=== PATIENT | female | born 1970 | race Caucasian/White ===

== ENCOUNTER 2016-08-26 06:11 | Observation (INO) | payer OTHER ==
[~2016-08-26] VITALS: Ht 170.2 cm; Wt 85.0 kg
[~2016-08-26 06:11] MED LIST: AMBI10TA PO; PROT40TA PO; PROZ40CA PO
[2016-08-26 12:00] VITALS: BP 121/59; PULSE 56; RESP 17; TEMP 97.5; O2SAT 93
[2016-08-26] MEDS ORDERED: methylPREDNISolone SOD SUCC 125 MG/2 ML VIAL IV PUSH ONE (14:00)
[2016-08-26] MEDS ORDERED: ALBUTEROL SULFATE 90 MCG/ACT HFA 18 GM INHALER INH PRN (14:00)
[2016-08-26] MEDS ORDERED: ONDANSETRON HCL 4 MG/2 ML VIAL IV PRN (14:30)
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
[2016-08-26] MEDS: PANTOPRAZOLE SOD 40 MG DELAYED RELEASE TAB PO SCH (15:27)
[2016-08-26] MEDS: ACETAMINOPHEN 325 MG TAB PO PRN ×2 (15:28→20:11)
[2016-08-26 16:00] VITALS: BP 120/63; PULSE 62; RESP 17; TEMP 97.9; O2SAT 96
[2016-08-26] MEDS: RESP: ALBUTEROL 2.5 MG/IPRATROPIUM 0.5 MG NEB (SCH) NEB ×2 (18:13→20:32)
[2016-08-26 20:00] VITALS: BP 116/64; PULSE 80; RESP 18; TEMP 96; O2SAT 96
[2016-08-26] MEDS: methylPREDNISolone SOD SUCC 125 MG/2 ML VIAL IV PUSH SCH (20:10)
[2016-08-26 20:34] VITALS: O2SAT 97
[2016-08-27] MEDS: methylPREDNISolone SOD SUCC 125 MG/2 ML VIAL IV PUSH SCH ×2 (00:09→05:09)
[2016-08-27 00:10] VITALS: BP 111/52; PULSE 82; RESP 18; TEMP 97; O2SAT 92
[2016-08-27 04:04] VITALS: BP 116/59; PULSE 80; RESP 17; TEMP 96.2; O2SAT 95
[2016-08-27 06:03] LABS: AUTOMATED NEUTROPHIL # 8.5 TH/MM3 (1.8-7.7); HEMATOCRIT 35.2 % (35.0-46.0); HEMO FLAGS DIFF FINAL; LYMPH % 6.7 % (9.0-44.0); LYMPHOCYTE # 0.6 TH/MM3 (1.0-4.8); MEAN CELL VOLUME 83.1 FL (80.0-100.0); MEAN CORPUSCULAR HEMOGLOBIN 27.5 PG (27.0-34.0); MONO % 0.5 % (0.0-8.0); NEUT % 92.8 % (16.0-70.0); PLATELET COUNT 397 TH/MM3 (150-450); RED BLOOD COUNT 4.24 MIL/MM3 (4.00-5.30); RED CELL DISTRIBUTION WIDTH 17.1 % (11.6-17.2); WHITE BLOOD COUNT 9.2 TH/MM3 (4.0-11.0)
[2016-08-27 06:19] LABS: BICARBONATE 24.2 MEQ/L (21.0-32.0); MAGNESIUM 1.9 MG/DL (1.5-2.5); POTASSIUM 4.1 MEQ/L (3.5-5.1)
[2016-08-27 07:45] VITALS: O2SAT 93
[2016-08-27] MEDS: RESP: ALBUTEROL 2.5 MG/IPRATROPIUM 0.5 MG NEB (SCH) NEB ×2 (07:45→12:09)
[2016-08-27 08:00] VITALS: BP 118/78; PULSE 68; PULSE 75; RESP 19; TEMP 96.7; O2SAT 92
--- NOTE | 2016-08-27 08:31 | HHI.PR ---
Subjective Remarks Pt feeling well this morning. She has been ambulating in her room without difficulty HR has been stable on telemetry Objective Vitals Vital Signs Date Time Temp Pulse Resp B/P Pulse Ox O2 Delivery O2 Flow Rate FiO2 08/27/16 08:00 96.7 68 19 118/78 92 08/27/16 07:45 93 21 08/27/16 04:04 96.2 80 17 116/59 95 08/27/16 00:10 97.0 82 18 111/52 92 08/26/16 20:34 97 08/26/16 20:00 96.0 80 18 116/64 96 08/26/16 16:00 97.9 62 17 120/63 96 08/26/16 12:00 97.5 56 17 121/59 93 08/26/16 08/26/16 08/27/16 15:00 23:00 07:00 Intake Total 240 ml 480 ml 380 ml Balance 240 ml 480 ml 380 ml Intake Oral 240 ml 480 ml 380 ml # Voids 1 2 2 # Bowel Movements 0 Result Diagram: 08/27/16 0502 08/27/16 0502 Other Results Laboratory Tests Test 08/27/16 05:02 White Blood Count 9.2 TH/MM3 Red Blood Count 4.24 MIL/MM3 Hemoglobin 11.6 GM/DL Hematocrit 35.2 % Mean Corpuscular Volume 83.1 FL Mean Corpuscular Hemoglobin 27.5 PG Mean Corpuscular Hemoglobin 33.0 % Concent Red Cell Distribution Width 17.1 % Platelet Count 397 TH/MM3 Mean Platelet Volume 7.8 FL Neutrophils (%) (Auto) 92.8 % Lymphocytes (%) (Auto) 6.7 % Monocytes (%) (Auto) 0.5 % Eosinophils (%) (Auto) 0.0 % Basophils (%) (Auto) 0.0 % Neutrophils # (Auto) 8.5 TH/MM3 Lymphocytes # (Auto) 0.6 TH/MM3 Monocytes # (Auto) 0.0 TH/MM3 Eosinophils # (Auto) 0.0 TH/MM3 Basophils # (Auto) 0.0 TH/MM3 CBC Comment DIFF FINAL Differential Comment Sodium Level 142 MEQ/L Potassium Level 4.1 MEQ/L Chloride Level 108 MEQ/L Carbon Dioxide Level 24.2 MEQ/L Anion Gap 10 MEQ/L Blood Urea Nitrogen 7 MG/DL Creatinine 0.68 MG/DL Estimat Glomerular Filtration 93 ML/MIN Rate Random Glucose 175 MG/DL Calcium Level 8.7 MG/DL Magnesium Level 1.9 MG/DL Objective Remarks General: NAD, AAOx3 Chest: CTA bilaterally Cardiac: Regular Abd: +BS, soft ND/NT Ext: No edema A/P Problem List: (1) Accidental overdose Status: Acute Plan: - Pt is a 46 y/o WF with GERD and COPD who was brought to the ED at [facility] on 08/25/16 after she accidentally took her husbands medications, which consisted of Clonidine, Lisinopril,. Amlodipine, Prozac and Valium. - Patient became very somnolent and had slurred speech with an ataxic gait and this prompted her evaluation in the ED yesterday evening. - Pt was observed in ED overnight at [facility] and did have improvement in her symptoms, however her gait remained ataxic and HR continued in the 50s, sinus bradycardia so she was transferred to [facility] on 08/26/16 for continued observation. - Pts HR has been stable on telemetry overnight. - Pt has been ambulating without difficulty - Anticipate d/c home today (2) Bradycardia Status: Acute Plan: - See above. - Telemetry (3) COPD (chronic obstructive pulmonary disease) Status: Chronic Plan: - Pt with significant wheezing on examination at admission. - She reports that she had recently been treated for an URI infection with Steroids and antibiotics. - Pt was given IV Solumedrol 125mg po x one dose now and continue 60mg every 6 hours and scheduled Duoneb treatments Q4H WA - She has had significant improvement today, no further wheezing. - We will discharge home with a nebulizer machine and Duonebs QID for the next 3 days and then can be used as needed. - We will also discharge with a quick taper of steroids. - Pt will need to followup with her PCP in 1 week. (4) GERD (gastroesophageal reflux disease) Status: Chronic Plan: - Cont. PPI Assessment and Plan Patient examined. Assessment and plan formulated with Meli Brown PA-C. I agree with the above. copd flare improved. accidental drug od. sx's resolved. d/c home on duonebs and steroid taper. f/u pcp. Problem Qualifiers (1) Accidental overdose: Qualified Code: T50.901A - Accidental overdose, initial encounter Meli Brown Aug 27, 2016 08:31 Eliel Riley MD Aug 27, 2016 20:53
[2016-08-27] MEDS ORDERED: PRED20 PO (08:34)
[2016-08-27] MEDS ORDERED: IPRA0.02 NEB (08:34)
[2016-08-27] MEDS ORDERED: ALBU0.08 NEB (08:34)
[2016-08-27] MEDS ORDERED: NEBULIZER/ADULT1 KIT (08:34)
--- NOTE | 2016-08-27 08:36 | HHI.DCPOC ---
Discharge Care Plan Diagnosis: (1) GERD (gastroesophageal reflux disease) (2) COPD (chronic obstructive pulmonary disease) (3) Bradycardia (4) Accidental overdose Goals to Promote Your Health * To prevent worsening of your condition and complications * To maintain your health at the optimal level Directions to Meet Your Goals Take your medications as prescribed Follow your dietary instruction Follow activity as directed Keep your appointments as scheduled Take your immunizations and boosters as scheduled If your symptoms worsen call your PCP, if no PCP go to Urgent Care Center or Emergency Room Smoking is Dangerous to Your Health. Avoid second hand smoke Call the 24-hour hour crisis hotline for domestic abuse at Meli Brown Aug 27, 2016 08:36
[2016-08-27] MEDS: PANTOPRAZOLE SOD 40 MG DELAYED RELEASE TAB PO SCH (09:18)
[2016-08-27 12:00] VITALS: BP 122/80; PULSE 78; RESP 18; TEMP 97.8; O2SAT 92
== END 2016-08-27 12:15 | disposition home or self-care (01) ==
LOC: NEDDLT 09:32 → N07A 09:42
PROVIDERS: ADMIT Hospitalist; ATTEND Hospitalist
DX: T50.901A Poisoning by unspecified drugs, medicaments and biological substances, accidental (unintentional), initial encounter (principal); R40.0 Somnolence; R47.81 Slurred speech; R26.0 Ataxic gait; R00.1 Bradycardia, unspecified; K21.9 Gastro-esophageal reflux disease without esophagitis; F32.9 Major depressive disorder, single episode, unspecified; J44.9 Chronic obstructive pulmonary disease, unspecified; Z85.828 Personal history of other malignant neoplasm of skin; Z88.1 Allergy status to other antibiotic agents; Z88.2 Allergy status to sulfonamides; Z88.5 Allergy status to narcotic agent; Z87.891 Personal history of nicotine dependence
CPT/HCPCS: 80048; 80053; 80307; 81001; 83735; 85025; 87086; 93005; 94640; 94664; 97161; G8987; G8988; J2930; J7030; 96360; 96361; 96374; 96376; 99281; G0378

== ENCOUNTER 2016-10-01 05:58 | Emergency (ER) | payer SELFPAY ==
[~2016-10-01] VITALS: Ht 170.2 cm; Wt 78.0 kg
[~2016-10-01 05:58] MED LIST changes: +ALBU0.08 NEB; +IPRA0.02 NEB; +NEBULIZER/ADULT1 KIT; +PRED20 PO
[2016-10-01 05:59] VITALS: BP 138/67; PULSE 88; RESP 18; TEMP 97.8; O2SAT 97
[2016-10-01] MEDS ORDERED: HYDROmorphone HCL PF 1 MG/ML VIAL IVS ONE (07:30)
[2016-10-01] MEDS ORDERED: ONDANSETRON HCL 4 MG/2 ML VIAL IVP ONE (07:30)
[2016-10-01] MEDS ORDERED: SODIUM CHLORIDE 0.9% FLUSH 10 ML FLUSH IV FLUSH PRN (07:30)
[2016-10-01 07:44] VITALS: O2SAT 99
[2016-10-01 08:04] LABS: AUTOMATED NEUTROPHIL # 4.3 TH/MM3 (1.8-7.7); BASOPHIL # 0.1 TH/MM3 (0-0.2); BASOPHIL % 0.7 % (0.0-2.0); EOSINOPHIL # 0.2 TH/MM3 (0-0.4); HEMATOCRIT 37.8 % (35.0-46.0); HEMO FLAGS DIFF FINAL; LYMPH % 31.7 % (9.0-44.0); LYMPHOCYTE # 2.5 TH/MM3 (1.0-4.8); MEAN CORPUSCULAR HEMOGLOBIN 26.4 PG (27.0-34.0); MEAN CORPUSCULAR HGB CONC 31.8 % (32.0-36.0); MONO % 9.9 % (0.0-8.0); NEUT % 55.7 % (16.0-70.0); PLATELET COUNT 354 TH/MM3 (150-450); RED BLOOD COUNT 4.56 MIL/MM3 (4.00-5.30); RED CELL DISTRIBUTION WIDTH 16.8 % (11.6-17.2); WHITE BLOOD COUNT 7.7 TH/MM3 (4.0-11.0)
--- NOTE | 2016-10-01 08:06 | PD ---
HPI Chief Complaint: Abdominal Pain Time Seen by Provider: 07:14 Travel History International Travel<30 days: No Contact w/Intl Traveler<30days: No Traveled to known affect area: No History of Present Illness HPI 46-year-old female arrives complaining of constant right-sided abdominal pain in the region of the right upper quadrant and the right flank which radiates to the right groin. She offers several additional complaints including bloody stool since Wednesday, 2 days prior. She reports losing weight, insomnia and significant personal stress lately. She notes blood work for from [place] showed an elevated white blood cell count which had her concern in addition to other laboratory abnormalities evidently obtained by her and reviewed by primary physician, Dr. Ham. She describes an inability to work and function. She describes occasional left-sided flank pain. She reports taking 1500 mg of Tylenol on four different occasions yesterday which did not help. She is experiencing personal stress due to her 's illness. She is also upset because of Obamacare, having lost her insurance about 1 month prior. PFSH Past Medical History Arthritis: Yes Asthma: Yes Anxiety: Yes Depression: Yes Cancer: Yes Cardiovascular Problems: No COPD: Yes Diabetes: No Diminished Hearing: No GERD: Yes Hiatal Hernia: Yes Integumentary: Yes (skin cancer) Migraines: Yes Sleep Apnea: Yes Thyroid Disease: No ?: Not LMP: 09/15/16 Tubal Ligation: Yes (1995) Past Surgical History Abdominal Surgery: Yes Body Medical Devices: plaastic clips in tubes Gynecologic Surgery: Yes Other Surgery: Yes Social History Alcohol Use: No Tobacco Use: No Substance Use: Yes (MARIJUANA) Allergies-Medications (Allergen,Severity, Reaction): Coded Allergies: Morphine (Verified Allergy, Severe, 10/01/16) Toradol (Verified Allergy, Severe, 10/01/16) Tramadol (Verified Allergy, Severe, 10/01/16) Uncoded Allergies: codeine, biaxin, sulfa, keflex, cipro (Allergy, Severe, 08/25/16) Reported Meds & Prescriptions Reported Meds & Active Scripts Active Nebulizer/Adult Mask (N/A) 1 Kit Kit 1 Kit .ROUTE DIRECTED Ipratropium Neb (Ipratropium [place]) 0.5 Mg/2.5 Ml Amp 0.5 Mg NEB QID Albuterol Neb (Albuterol Sulfate) 2.5 Mg/3 Ml Neb 2.5 Mg NEB QID NEB Reported Protonix (Pantoprazole Sodium) 40 Mg Tab 40 Mg PO DAILY Ambien (Zolpidem Tartrate) 10 Mg Tab 10 Mg PO HS PRN Prozac (Fluoxetine HCl) 40 Mg Cap 40 Mg PO DAILY Review of Systems Except as stated in HPI: all other systems reviewed are Neg General / Constitutional: No: Fever Physical Exam Narrative GENERAL: 46 yo F, WNWD, minimal distress 2/2 pain and or anxiety SKIN: Warm and dry. HEAD: Atraumatic. Normocephalic. EYES: Pupils equal and round. No scleral icterus. No injection or drainage. ENT: No nasal bleeding or discharge. Mucous membranes pink and moist. NECK: Trachea midline. No JVD. CARDIOVASCULAR: Regular rate and rhythm. RESPIRATORY: No accessory muscle use. Clear to auscultation. Breath sounds equal bilaterally. GASTROINTESTINAL: Soft. TTP RLQ. MUSCULOSKELETAL: Extremities without clubbing, cyanosis, or edema. No obvious deformities. NEUROLOGICAL: Awake and alert. No obvious cranial nerve deficits. Motor grossly within normal limits. Five out of 5 muscle strength in the arms and legs. Normal speech. PSYCHIATRIC: Appropriate mood and affect; insight and judgment normal. Data Data Last Documented VS Vital Signs Date Time Temp Pulse Resp B/P Pulse Ox O2 Delivery O2 Flow Rate FiO2 10/01/16 10:31 78 20 132/72 10/01/16 07:44 99 10/01/16 05:59 97.8 Room Air VS reviewed Orders Complete Blood Count With Diff (10/01/16 07:26) Comprehensive Metabolic Panel (10/01/16 07:26) Lipase (10/01/16 07:26) Urinalysis - C+S If Indicated (10/01/16 07:26) Ct Abd/Pel W Iv Contrast(Rout) (10/01/16 07:26) Iv Access Insert/Monitor (10/01/16 07:26) Ecg Monitoring (10/01/16 07:26) Oximetry (10/01/16 07:26) Ondansetron Inj (Zofran Inj) (10/01/16 07:30) Sodium Chloride 0.9% Flush (Ns Flush) (10/01/16 07:30) Hydromorphone Pf Inj (Dilaudid Pf Inj) (10/01/16 07:30) Ed Urine Pregnancytest Poc (10/01/16 07:26) Tylenol (Acetaminophen) (10/01/16 08:06) Urine Culture (10/01/16 07:30) Al-Mag Hy-Si 40-40-4 Mg/Ml Liq (Mag-Al P (10/01/16 09:15) Iohexol 350 Inj (Omnipaque 350 Inj) (10/01/16 09:43) Labs Laboratory Tests Test 10/01/16 10/01/16 07:30 07:35 Urine Color LIGHT-YELLOW Urine Turbidity HAZY Urine pH 6.0 Urine Specific [place] 1.005 Urine Protein NEG mg/dL Urine Glucose (UA) NEG mg/dL Urine Ketones NEG mg/dL Urine Occult Blood NEG Urine Nitrite NEG Urine Bilirubin NEG Urine Urobilinogen LESS THAN 2.0 MG/DL Urine Leukocyte Esterase TRACE Urine RBC 2 /hpf Urine WBC 2 /hpf Urine Squamous Epithelial 7 /hpf Cells Urine Amorphous Sediment OCC Urine Bacteria MOD /hpf Urine Mucus FEW /lpf Microscopic Urinalysis Comment CULTURE INDICATED White Blood Count 7.7 TH/MM3 Red Blood Count 4.56 MIL/MM3 Hemoglobin 12.0 GM/DL Hematocrit 37.8 % Mean Corpuscular Volume 83.0 FL Mean Corpuscular Hemoglobin 26.4 PG Mean Corpuscular Hemoglobin 31.8 % Concent Red Cell Distribution Width 16.8 % Platelet Count 354 TH/MM3 Mean Platelet Volume 7.3 FL Neutrophils (%) (Auto) 55.7 % Lymphocytes (%) (Auto) 31.7 % Monocytes (%) (Auto) 9.9 % Eosinophils (%) (Auto) 2.0 % Basophils (%) (Auto) 0.7 % Neutrophils # (Auto) 4.3 TH/MM3 Lymphocytes # (Auto) 2.5 TH/MM3 Monocytes # (Auto) 0.8 TH/MM3 Eosinophils # (Auto) 0.2 TH/MM3 Basophils # (Auto) 0.1 TH/MM3 CBC Comment DIFF FINAL Differential Comment Sodium Level 139 MEQ/L Potassium Level 4.0 MEQ/L Chloride Level 106 MEQ/L Carbon Dioxide Level 25.5 MEQ/L Anion Gap 8 MEQ/L Blood Urea Nitrogen 8 MG/DL Creatinine 0.83 MG/DL Estimat Glomerular Filtration 74 ML/MIN Rate Random Glucose 82 MG/DL Calcium Level 8.8 MG/DL Total Bilirubin 0.2 MG/DL Aspartate Amino Transf 9 U/L (AST/SGOT) Alanine Aminotransferase 14 U/L (ALT/SGPT) Alkaline Phosphatase 66 U/L Total Protein 6.6 GM/DL Albumin 3.6 GM/DL Lipase 112 U/L Acetaminophen Level 7.3 MCG/ML MDM Medical Decision Making Medical Screen Exam Complete: Yes Emergency Medical Condition: Yes Differential Diagnosis Constipation, Gastritis, Acute Cholecystitis, Biliary Colic, Pancreatitis, VENTURA , Hepatitis, Bowel Obstruction, Cystitis, Mesenteric Ischemia, AAA, Appendicitis , Renal Stone/Hydronephrosis, GERD, perforated viscous Narrative Course Pt asleep at 805AM. Pt asleep at 840AM. CBC & BMP Diagram 10/01/16 07:35 LFTs/Lipase normal UA: no UTI APAP 7.3 PT sleeping at 1008AM. Last 24 hours Impressions Abdomen/Pelvis CT 10/01/16 0726 Signed Impressions: Service Date/Time: September 09:30 - CONCLUSION: 1. No acute finding is identified to explain the right abdominal and flank pain. The appendix is normal. 2. Enhancing mass in the anterior uterine body measuring 2.4 cm. Although incompletely characterized on this examination this most likely represents a uterine fibroid. Orion Hall MD The patient is resting comfortably and feels better, is alert and in no distress at time of reassessment, 10:51 AM. The patients results and examination findings were discussed. The repeat examination is unremarkable and benign. The history, exam, diagnostic testing, and current condition do not suggest any significant pathology to warrant further testing, continued ED treatment, admission, or surgical evaluation at this point. The vital signs have been stable. The patient does not have uncontrollable pain, intractable vomiting, or other significant symptoms. The patient's condition is stable and appropriate for discharge. The patient will pursue further outpatient evaluation with a primary care physician or other designated or consulting physician as indicated in the discharge instructions. The patient expressed understanding and was agreeable with this plan. Diagnosis Primary Impression: Rectal bleed Additional Impressions: Right sided abdominal pain Right flank pain Referrals: Henny Florez MD, Souheil MD 2 days [facility] 2 days Patient Assistance Program Additional Instructions: You have a choice when it comes to health care, and we are glad that you chose [facility]. Hopefully, we have met your expectations on today's visit. You are welcome to return to [facility] at any time, as we are committed to meeting the health care needs of our community. PLEASE TAKE NO MORE THAN 2 EXTRA STRENGTH TYLENOL TABLETS EVERY 8 HOURS. Med/Other Pt SpecificInfo: No Change to Meds Disposition: 01 DISCHARGE HOME Condition: Brent Pittman MD Oct 01, 2016 08:06
[2016-10-01 08:09] LABS: BACTERIA, URINE MOD /hpf; BLOOD, URINE NEG (NEG); COMMENT (UR) CULTURE INDICATED; CULTURE IF INDICATED CULTURE INDICATED; GLUCOSE,URINE NEG (NEG); KETONE, URINE NEG (NEG); MUCUS URINE FEW /lpf (OCC); NITRITE,URINE NEG (NEG); SQUAMOUS EPITHELIAL CELL URINE 7 /hpf (0-5); URINE COLOR LIGHT-YELLOW (YELLW/STRAW)
[2016-10-01 08:27] LABS: ANION GAP 8 MEQ/L (5-15); AST (GOT) 9 U/L (15-37); BICARBONATE 25.5 MEQ/L (21.0-32.0); BLOOD UREA NITROGEN 8 MG/DL (7-18); CHLORIDE 106 MEQ/L (98-107); GLOMERULAR FILTRATION RATE 74 ML/MIN (>89); SODIUM (NA) 139 MEQ/L (136-145)
[2016-10-01 08:29] LABS: ALT (GPT) 14 U/L (10-53)
[2016-10-01 08:31] LABS: ALKALINE PHOSPHATASE 66 U/L (45-117); TOTAL BILIRUBIN ADULT 0.2 MG/DL (0.2-1.0)
[2016-10-01] MEDS ORDERED: ALUMINUM/MAGNESIUM/SIMETH 30 ML CUP PO ONE (09:15)
[2016-10-01] MEDS ORDERED: IOHEXOL 350 MG/ML 10 ML VIAL (for RAD DIAG) IV ONE (09:43)
--- NOTE | 2016-10-01 10:17 | RADRPT ---
EXAM DATE/TIME: 10/01/2016 09:30 [place] COMPARISON: No previous studies available for comparison. INDICATIONS : Right side abdomen and flank pain. IV CONTRAST: 97 cc Omnipaque 350 (iohexol) IV ORAL CONTRAST: No oral contrast ingested. RADIATION DOSE: 11.70 CTDIvol (mGy) MEDICAL HISTORY : Diverticulitis. Hernia, hiatal. Gastroesophageal reflux disease. SURGICAL HISTORY : Cholecystectomy. Tubal ligation. ENCOUNTER: Initial ACUITY: 1 month PAIN SCALE: 6/10 LOCATION: Right flank TECHNIQUE: Volumetric scanning of the abdomen and pelvis was performed. Using automated exposure control and ad justment of the mA and/or kV according to patient size, radiation dose was kept as low as reasonably achievable to obtain optimal diagnostic quality images. DICOM format image data is available electro nically for review and comparison. FINDINGS: LOWER LUNGS: The visualized lower lungs are clear. LIVER: Homogeneous density without lesion. There is no dilation of the biliary tree. There has been prior cholecystectomy with clips in the gallbladder fossa. SPLEEN: Normal size without lesion. PANCREAS: Within normal limits. KIDNEYS: Normal in size and shape. There is no mass, stone or hydronephrosis. ADRENAL GLANDS: Within normal limits. VASCULAR: There is no aortic aneurysm. BOWEL/MESENTERY: The stomach, small bowel, and colon demonstrate no acute abnormality. There is no free intraperitone al air or fluid. Appendix is normal. ABDOMINAL WALL: Within normal limits. RETROPERITONEUM: There is no lymphadenopathy. BLADDER: No wall thickening or mass. REPRODUCTIVE: There are tubal ligation clips. The uterus enhances heterogeneously with possible mass in the anterio r body measuring 2.4 cm. Adnexal regions demonstrate no abnormality. INGUINAL: There is no lymphadenopathy or hernia. MUSCULOSKELETAL: Within normal limits for patient age. CONCLUSION: 1. No acute finding is identified to explain the right abdominal and flank pain. The appendix is norm al. 2. Enhancing mass in the anterior uterine body measuring 2.4 cm. Although incompletely characterized on this examination this most likely represents a uterine fibroid. Orion Hall MD on October 01, 2016 at 10:10 Board Certified Radiologist. This report was verified electronically.
[2016-10-01 10:31] VITALS: BP 132/72; PULSE 78; RESP 20
[2016-10-01] MEDS ORDERED: HYDR-3533 PO (11:04)
== END 2016-10-01 11:11 | disposition home or self-care (01) ==
LOC: NEPE 05:58
DX: K92.1 Melena (principal); R10.11 Right upper quadrant pain; F12.10 Cannabis abuse, uncomplicated; F41.8 Other specified anxiety disorders; J44.9 Chronic obstructive pulmonary disease, unspecified
CPT/HCPCS: 74177; 80053; 80307; 81001; 83690; 84703; 85025; 87086; 96374; 96375; 99285; J1170; J2405; Q9967